=== PATIENT | female | born 1975 | race Caucasian/White ===

== ENCOUNTER 2016-08-29 09:24 | Emergency (ER) | payer OTHER ==
[2016-08-29 09:25] VITALS: BMI 40.2
[2016-08-29 09:32] VITALS: O2SAT 100
--- NOTE | 2016-08-29 10:08 | C.PDOC ---
History Of Present Illness 41 yr old female presents to the ER with complaints of cough and nasal congestion for 1 day. Also reports of pain across the upper back since last night and left foot pain for the past few months. Patient denies any trauma, injury, fever, chest pain, SOB, nausea, vomiting, abdominal pain, dysuria, incontinence, weakness or numbness. Time Seen by Provider: 08/29/16 09:45 Chief Complaint (Nursing): Flu-like Symptoms History Per: Patient History/Exam Limitations: no limitations Onset/Duration Of Symptoms: Days Current Symptoms Are (Timing): Still Present Sick Contacts (Context): None Past Medical History Reviewed: Historical Data, Nursing Documentation, Vital Signs Vital Signs: Last Vital Signs Temp 97.9 F 08/29/16 12:39 Pulse 73 08/29/16 12:39 Resp 16 08/29/16 12:39 BP 174/100 H 08/29/16 12:39 Pulse Ox 100 08/29/16 12:39 - Medical History PMH: HTN - [facility] Procedures BILAT TUBAL DESTRUCT NEC (03/30/13) INDUCT LABOR-RUPT MEMB (03/30/13) LOW CERVICAL (03/30/13) MEDICAL INDUCTION LABOR (03/30/13) Family History: States: No Known Family Hx - Social History Hx Tobacco Use: No Hx Alcohol Use: No Hx Substance Use: No Review Of Systems Except As Marked, All Systems Reviewed And Found Negative. Constitutional: Negative for: Fever ENT: Positive for: Nose Congestion Cardiovascular: Negative for: Chest Pain Respiratory: Positive for: Cough. Negative for: Shortness of Breath Gastrointestinal: Negative for: Nausea, Vomiting, Abdominal Pain Genitourinary: Negative for: Dysuria, Incontinence Musculoskeletal: Positive for: Back Pain (Upper back ), Foot Pain (Left foot ) Neurological: Negative for: Weakness, Numbness Physical Exam - Physical Exam Appears: Well, Non-toxic, No Acute Distress Skin: Warm, Dry, No Rash Head: Atraumatic, Normacephalic Oral Mucosa: Moist Neck: Normal, Normal ROM, No Midline Cervical Tenderness, Supple Chest: Symmetrical, No Tenderness Cardiovascular: Rhythm Regular, No Murmur Respiratory: Normal Breath Sounds, No Rales, No Rhonchi, No Stridor, No Wheezing Back: Normal Inspection, No CVA Tenderness Extremity: Normal ROM, Tenderness (Left Foot - Tender across the mid dorsum of the foot. No swelling.), No Calf Tenderness, Capillary Refill (<2), No Swelling Pulses: Left Dorsalis Pedis: Normal, Right Dorsalis Pedis: Normal Neurological/Psych: Oriented x3, Normal Speech, Normal Motor ED Course And Treatment O2 Sat by Pulse Oximetry: 100 - Other Rad X-Ray - Left Foot X-Ray: Viewed By Me, Read By Radiologist Interpretation: PROCEDURE: Left Foot Radiographs. HISTORY: pain no trauma. COMPARISON: None. FINDINGS: BONES: No fracture. Dorsal midfoot osseous hypertrophy/ osteoarthrosis suggested for this also midfoot dorsal soft tissue swelling here also noted. Hammertoes. Posterior calcaneal spurring/Achilles insertional enthesophyte. Os peroneum. JOINTS: Osteoarthrosis dorsal midfoot. SOFT TISSUES: Soft tissue swelling dorsal midfoot. OTHER FINDINGS: None. IMPRESSION: No fracture or bone destruction. Distal midfoot hypertrophic osteoarthrosis with overlying soft tissue prominence. If there is any clinical suspicion for a ganglionic cyst here, consider MRI. Developmental variants. Medical Decision Making Medical Decision Making: PLAN: * X-Ray - Left Foot * Motrin PO results discussed with pt symptomatic tx nsaid Disposition - Disposition Disposition: HOME/ ROUTINE Disposition Time: 12:13 Condition: GOOD Prescriptions: Naproxen [Naprosyn] 1 tab PO BID PRN #25 tab PRN Reason: Pain Instructions: Osteoarthritis (ED), Upper Respiratory Infection (ED) Forms: Work Excuse Print Language: [place] - Clinical Impression Clinical Impression: URI (upper respiratory infection), Arthritis of foot - Scribe Statement The provider has reviewed the documentation as recorded by the Crow Rubio Provider Attestation: All medical record entries made by the Crow were at my direction and personally dictated by me. I have reviewed the chart and agree that the record accurately reflects my personal performance of the history, physical exam, medical decision making, and the department course for this patient. I have also personally directed, reviewed, and agree with the discharge instructions and disposition.
--- NOTE | 2016-08-29 11:43 | RAD ---
PROCEDURE: Left Foot Radiographs. HISTORY: pain no trauma COMPARISON: None. FINDINGS: BONES: No fracture. Dorsal midfoot osseous hypertrophy/ osteoarthrosis suggested for this also midfoot dorsal soft tissue swelling here also noted Hammertoes Posterior calcaneal spurring/Achilles insertional enthesophyte. Os peroneum JOINTS: Osteoarthrosis dorsal midfoot SOFT TISSUES: Soft tissue swelling dorsal midfoot OTHER FINDINGS: None. IMPRESSION: No fracture or bone destruction Distal midfoot hypertrophic osteoarthrosis with overlying soft tissue prominence. If there is any clinical suspicion for a ganglionic cyst here, consider MRI Developmental variants
[2016-08-29 12:40] VITALS: BP 174/100; PULSE 73; RESP 16; TEMP 97.9
== END 2016-08-29 12:41 | disposition home or self-care (01) ==
LOC: C.ER 09:24
DX: J06.9 Acute upper respiratory infection, unspecified (principal); M13.872 Other specified arthritis, left ankle and foot

== ENCOUNTER 2016-11-08 08:34 | Emergency (ER) | payer OTHER ==
[2016-11-08 08:35] VITALS: BMI 40.2
[2016-11-08 08:42] VITALS: BP 147/93; PULSE 74; RESP 20; TEMP 97.7; O2SAT 97
--- NOTE | 2016-11-08 09:16 | C.PDOC ---
History Of Present Illness 41 yo female w/o significant PMHx come in for evaluation of Right foot pain associated with Right ankle swelling gradually developed for past few days. Pt reports, pain is aching, localized and worse with ambulation. Otherwise, pt denies known trauma or injury, fever, chills, deformity, Right calf pain, CP, SOB, dyspnea, diaphoresis, cough, palpitation, skin changes, weakness, sensory or vascular deficits to Right foot. Ambulate to Ed for evaluation, not in any apparent distress. Time Seen by Provider: 11/08/16 08:57 Chief Complaint (Nursing): Lower Extremity Problem/Injury History Per: Patient Past Medical History Reviewed: Historical Data, Nursing Documentation, Vital Signs Vital Signs: Last Vital Signs Temp 97.7 F 11/08/16 08:39 Pulse 74 11/08/16 08:39 Resp 20 11/08/16 08:39 BP 147/93 H 11/08/16 08:39 Pulse Ox 97 11/08/16 09:41 - Medical History PMH: HTN Surgical History: No Surg Hx - [facility] Procedures BILAT TUBAL DESTRUCT NEC (03/30/13) INDUCT LABOR-RUPT MEMB (03/30/13) LOW CERVICAL (03/30/13) MEDICAL INDUCTION LABOR (03/30/13) Family History: States: No Known Family Hx - Social History Hx Tobacco Use: No Hx Alcohol Use: No Hx Substance Use: No - Immunization History Hx Tetanus Toxoid Vaccination: No Hx Influenza Vaccination: No Hx Pneumococcal Vaccination: No Review Of Systems Except As Marked, All Systems Reviewed And Found Negative. Constitutional: Negative for: Fever, Chills ENT: Negative for: Throat Pain Cardiovascular: Negative for: Chest Pain, Palpitations, Orthopnea, Edema, Light Headedness Musculoskeletal: Positive for: Foot Pain Skin: Negative for: Rash, Bruising Neurological: Negative for: Weakness, Numbness, Headache, Dizziness Physical Exam - Physical Exam Appears: Well, No Acute Distress Skin: Normal Color, Warm, Dry, No Rash, No Cyanotic, No Ecchymosis Eye(s): bilateral: PERRL Neck: Supple, Other ((-)JVD) Cardiovascular: Rhythm Regular Respiratory: No Stridor, No Wheezing Back: No CVA Tenderness Extremity: Normal ROM (B/L LEs), Tenderness (mild tendeness over dorsal aspect of Right foot and lateral malleolus. Diffuse edema or Right foot over dosal aspect and lateral malleolus. FAROM, no neurovascular deficits, no palpable deformity.), No Pedal Edema, No Calf Tenderness (RLE), Capillary Refill (less than 2sec to Right foot), No Deformity, Other (mild scant erythema and warm over dorsal asepct Right foot. No proximal streaking.) Neurological/Psych: Oriented x3, Normal Speech, Normal Motor, Normal Sensation, Normal Reflexes ED Course And Treatment O2 Sat by Pulse Oximetry: 97 - Other Rad Right ankle X-Ray: Read By Radiologist Interpretation: Accession No. : [id number]. Patient Name / ID : WILBERTO SANDERS / [id number]. Exam Date : 11/08/2016 09:14:16 ( Approved ). Study Comment : Sex / Age : F / 41Y. Creator : Stefan Martel MD. Dictator : Stefan Martel MD. Business Technology Teacher : Enrollment Consultant : Stefan Martel MD. Approver2 : Report Date : 11/08/2016 09:34:57. My Comment : . PROCEDURE: Right ankle dated 11/08/2016. HISTORY: pain, swelling. COMPARISON: None. FINDINGS: BONES: No evidence of acute displaced fracture nor dislocation. Talar dome appears intact. JOINTS: Ankle mortise maintained. . There is tiny bony density within the soft tissues subjacent to the inferior tip of the medial malleolus which could represent some old posttraumatic mineralization. . SOFT TISSUES: There appears to be some minimal soft tissue swelling overlying the lateral malleolus. OTHER FINDINGS: None. IMPRESSION: No evidence of acute displaced fracture nor radiation. If symptoms persist or occult fracture suspected clinically recommend repeat radiographs in 5-10 days Progress Note: On re-eavl, pt is afebrile, hemodynamicaly stable. non-toxic. Right ankle; exam c/w right ankle/foot arthralgia, No deformity, no calf pain or tenderness, no palpable cords. FAROM, no neurovascular deficits. xray review and appears normal. Pt has clinical findings c/w right ankle arthralgia r/o cellulitis. Pt advised and ref. to f/u with PMD, Podiatry in 2-3 days for re-eval. return if any new changes. Disposition Counseled Patient/Family Regarding: Studies Performed, Diagnosis, Need For Followup, Rx Given - Disposition Referrals: [facility] [Outside] Podiatry Clinic [Outside] Disposition: HOME/ ROUTINE Disposition Time: 09:35 Condition: STABLE Additional Instructions: Babatunde wrap to Right ankle for 1 week take medication as prescribed Follow up with PMD, [facility] in 2-3 days for re-evaluation. Return to ED if any worsening or new changes. Prescriptions: Cephalexin [cephalexin] 500 mg PO Q6 #28 cap Ibuprofen [Motrin Tab] 600 mg PO Q6 #20 tab Instructions: Cellulitis (ED), Arthralgia (ED) Print Language: PALAU[place] - Clinical Impression Clinical Impression: Joint swelling, Cellulitis
--- NOTE | 2016-11-08 09:36 | RAD ---
PROCEDURE: Right ankle dated 11/08/2016 HISTORY: pain, swelling COMPARISON: None FINDINGS: BONES: No evidence of acute displaced fracture nor dislocation. Talar dome appears intact. JOINTS: Ankle mortise maintained. . There is tiny bony density within the soft tissues subjacent to the inferior tip of the medial malleolus which could represent some old posttraumatic mineralization. . SOFT TISSUES: There appears to be some minimal soft tissue swelling overlying the lateral malleolus OTHER FINDINGS: None. IMPRESSION: No evidence of acute displaced fracture nor radiation. If symptoms persist or occult fracture suspected clinically recommend repeat radiographs in 5-10 days
== END 2016-11-08 09:53 | disposition home or self-care (01) ==
LOC: C.ER 08:34
DX: L03.115 Cellulitis of right lower limb (principal)